=== PATIENT | female | born 1990 | race Caucasian/White ===

== ENCOUNTER 2017-07-26 02:04 | Emergency (ER) | payer SELFPAY ==
[2017-07-26 02:09] VITALS: BP 118/69
[2017-07-26] MEDS ORDERED: HYDROCODONE/ACETAMINOPHEN 5-325 MG 6 TAB/DSPK PO PRN (02:26)
[2017-07-26] MEDS ORDERED: PENICILLIN V POTASSIUM 500 MG TABLET PO ONE (02:26)
--- NOTE | 2017-07-26 02:30 | ER Document Report ---
HPI - HPI Patient complains to provider of: dental pain Pain Level: 4 Context: Patient is a 27-year-old female comes emergency department for chief complaint of dental pain. Symptoms have been getting much worse for the past 2 days. Patient has some dental caries that she is aware about, she is only had one extraction many years ago. She denies sore throat, fever, facial swelling, denies any other symptoms. - REPRODUCTIVE LMP: now Past Medical History - General Information source: Patient - Social History Smoking Status: Never Smoker Chew tobacco use (# tins/day): No Frequency of alcohol use: None Drug Abuse: None Lives with: Family Family History: Reviewed & Not Pertinent Patient has suicidal ideation: No Patient has homicidal ideation: No - Medical History Medical History: Negative Renal/ Medical History: Denies: Hx Peritoneal Dialysis Surgical Hx: Negative - Immunizations Immunizations up to date: Yes Hx Diphtheria, Pertussis, Tetanus Vaccination: Yes Vertical Provider Document - CONSTITUTIONAL General Appearance: WD/WN, No Apparent Distress - INFECTION CONTROL TRAVEL OUTSIDE OF THE [place] IN LAST 30 DAYS: No - HEENT HEENT: Atraumatic, Normocephalic. negative: Normal ENT Exam - Dental caries noted with the rest of the gumline but no palpable abscess, no other abnormalities noted in the oral or pharyngeal areas. Normal ENT exam otherwise. Mouth Diagram: 1 - Dental caries noted underneath, adjacent erythema of the gumline 2 - Dental caries noted underneath, adjacent erythema of the gumline - NECK Neck: Normal Inspection - No lymphadenopathy or swelling - RESPIRATORY Respiratory: Breath Sounds Normal, No Respiratory Distress O2 Sat by Pulse Oximetry: 100 - CARDIOVASCULAR Cardiovascular: Regular Rate, Regular Rhythm - GI/ABDOMEN Gastrointestinal: Abdomen Soft, Abdomen Non-Tender - NEURO Level of Consciousness: Awake, Alert, Appropriate - DERM Integumentary: Warm, Dry, No Rash Course - Vital Signs Vital signs: Temp Pulse Resp BP Pulse Ox 98.3 F 63 18 118/69 100 07/26/17 02:06 07/26/17 02:06 07/26/17 02:06 07/26/17 02:06 07/26/17 02:06 Discharge - Discharge Clinical Impression: Pain, dental Condition: Stable Disposition: HOME, SELF-CARE Additional Instructions: Your examination indicates dental caries and a dental infection. Take antibiotics to completion. Follow up with a Dentist or this will continue to occur. Return to the ED for any concerning or worsening symptoms including facial swelling. Prescriptions: Penicillin V Potassium [Penicillin Vk 500 mg Tablet] 500 mg PO BID #20 tablet
== END 2017-07-26 02:40 | disposition home or self-care (01) ==
LOC: ER 02:04
DX: K02.9 Dental caries, unspecified (principal); K08.89 Other specified disorders of teeth and supporting structures
CPT/HCPCS: 99282